=== PATIENT | male | born 1950 | race Caucasian/White ===

== ENCOUNTER 2016-11-08 12:08 | Day surgery (SDC) | payer MEDICARE, BC ==
--- NOTE | ~2016-11-08 | EGD ---
EGD REPORT [facility] [address] [place] [address] NAME: PAIGE BURK : [birth year] [place] : [place] [facility] [place] [id number] AGE: 66 ADM/REG DATE : MR#: [id number] REPORT SERV DATE: 11/08/16 DICTATED BY: DATE: REPORT STATUS : Draft TRANSCRIBED BY: [employer] DATE: 11/08/16 [facility] Patient Name: Paige Burk Date of : 1950 Attending MD: JENNY TORRES MD Procedure Date No Time: 11/08/2016 Procedure: Upper GI endoscopy Indications: Heartburn, Suspected esophageal reflux Referring MD: Jenny Pollack Medicines: as per anesthesia Complications: No immediate complications. Procedure: Pre-Anesthesia Assessment: - ASA Grade Assessment: III - A patient with severe systemic disease. After obtaining informed consent, the endoscope was passed under direct vision. Throughout the procedure, the patient's blood pressure, pulse, and oxygen saturations were monitored continuously. The GIF [id number] [id number] was introduced through the mouth, and advanced to the third part of duodenum. The upper GI endoscopy was accomplished without difficulty. The patient tolerated the procedure. Findings: There were esophageal mucosal changes suspicious for short-segment Alvarado's esophagus present in the lower third of the esophagus. The maximum longitudinal extent of these mucosal changes was 1 cm in length. Mucosa was biopsied with a cold forceps for histology randomly at intervals of 0.5 cm in the lower third of the esophagus. One specimen bottle was sent to pathology. Localized mild inflammation characterized by erythema was found in the gastric antrum. Biopsies were taken with a cold forceps for histology. The cardia and gastric fundus were normal on retroflexion. The examined duodenum was normal. 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 Biopsied. - Gastritis. Biopsied. - Normal examined duodenum. Recommendation: - Await pathology results. - Follow an antireflux regimen. - Continue present medications. Procedure Code(s): --- Professional --- EGD REPORT [address] [address] NAME: PAIGE BURK : [birth year] [place]US : [place] [facility] [place] PAT#: [id number] AGE: 66 ADM/REG DATE : MR#: [id number] REPORT SERV DATE: 11/08/16 DICTATED BY: DATE: REPORT STATUS : Draft TRANSCRIBED BY: [employer] DATE: 11/08/16 [id number], Esophagogastroduodenoscopy, flexible, transoral; with biopsy, single or multiple Diagnosis Code(s): --- Professional --- K22.9, Disease of esophagus, unspecified K29.70, Gastritis, unspecified, without bleeding R12, Heartburn CPT copyright 2013 [employer]. All rights reserved. The codes documented in this report are preliminary and upon state tested nursing assistant review may be revised to meet current compliance requirements. JENNY TORRES MD 11/08/2016 1:02 PM This report has been signed electronically. Number of Addenda: 0 Note Initiated On: 11/08/2016 12:41 PM Scope Withdrawal Time 0 hours 0 minutes [address] [place] [id number]
--- NOTE | ~2016-11-08 | EGD ---
EGD REPORT [facility] [address] [place] [address] NAME: PAIGE PALMER : [birth year] STATUS : PRE [facility] [place] PAT#: [id number] AGE: 66 ADM/REG DATE : MR#: [id number] REPORT SERV DATE: 11/08/16 DICTATED BY: JENNY TORRES DATE: 11/08/16 REPORT STATUS : Draft TRANSCRIBED BY: [employer] DATE: 11/08/16 [facility] Patient Name: Paige Palmer Date of : 1950 Attending MD: JENNY TORRES MD Procedure Date No Time: 11/08/2016 Procedure: Colonoscopy Indications: Screening for colorectal malignant neoplasm Referring MD: Jenny Pollack Medicines: as per anesthesia Complications: No immediate complications. Procedure: Pre-Anesthesia Assessment: - ASA Grade Assessment: III - A patient with severe systemic disease. After I obtained informed consent, the scope was passed under direct vision. Throughout the procedure, the patient's blood pressure, pulse, and oxygen saturations were monitored continuously. The PCF [id number] was introduced through the anus and advanced to the cecum, identified by appendiceal orifice and ileocecal valve. The colonoscopy was performed without difficulty. The patient tolerated the procedure. The quality of the bowel preparation was adequate to identify polyps. Findings: The perianal and digital rectal examinations were normal. The colon (entire examined portion) appeared normal. Impression: - The entire examined colon is normal. Recommendation: - Repeat colonoscopy in 10 years for surveillance. Procedure Code(s): --- Professional --- 67845, Colonoscopy, flexible, proximal to splenic flexure; diagnostic, with or without collection of specimen(s) by brushing or washing, with or without colon decompression (separate procedure) Diagnosis Code(s): --- Professional --- Z12.11, Encounter for screening for malignant neoplasm of colon CPT copyright 2013 [employer]. All rights reserved. EGD REPORT [facility] [address] [address] NAME: PAIGE PALMER : [birth year] STATUS : PRE [facility] [place] PAT#: [id number] AGE: 66 ADM/REG DATE : MR#: [id number] REPORT SERV DATE: 11/08/16 DICTATED BY: JENNY TORRES. DATE: 11/08/16 REPORT STATUS : Draft TRANSCRIBED BY: [employer] DATE: 11/08/16 The codes documented in this report are preliminary and upon soils technician review may be revised to meet current compliance requirements. JENNY TORRES MD 11/08/2016 1:19 PM This report has been signed electronically. Number of Addenda: 0 Note Initiated On: 11/08/2016 12:26 PM Scope Withdrawal Time 0 hours 6 minutes 29 seconds [address] [id number]
[~2016-11-08 12:08] MED LIST: ASAB PO; BETAPACE80 PO; BIST PO; CLARIT10 PO; CO Q-10100 MG PO; FISH OIL300 MG PO; FOLIC PO; LIPITOR40 PO; LYRICA25 PO; MOBIC15 MG PO; MTX2.5 PO; MULTIPLE VIT PO; NASACORTAQ NAS; NORCO1 TAB PO; PLAVIX PO; POTASSIUM GLUCO99 MG PO; PREDNISONE2.5 MG PO; PROTONIX PO; VALTREX5 PO; VITAMIN D31000 UNIT PO; VITE PO
== END 2016-11-08 23:59 | disposition home or self-care (01) ==
LOC: DMU 12:08
PROVIDERS: Internal Medicine Gastroenterology
PROC: 0DJD8ZZ Inspection of Lower Intestinal Tract, Via Natural or Artificial Opening Endoscopic (ICD-10-PCS; 2016-11-08)
PROC: 0DB38ZX Excision of Lower Esophagus, Via Natural or Artificial Opening Endoscopic, Diagnostic (ICD-10-PCS; principal; 2016-11-08 11:00)
PROC: 0DB68ZX Excision of Stomach, Via Natural or Artificial Opening Endoscopic, Diagnostic (ICD-10-PCS; 2016-11-08 11:00)
DX: Z12.11 Encounter for screening for malignant neoplasm of colon (principal); K29.50 Unspecified chronic gastritis without bleeding; K20.9 Esophagitis, unspecified; I48.0 Paroxysmal atrial fibrillation; M06.9 Rheumatoid arthritis, unspecified; J45.909 Unspecified asthma, uncomplicated; Z88.1 Allergy status to other antibiotic agents; Z88.8 Allergy status to other drugs, medicaments and biological substances; Z79.52 Long term (current) use of systemic steroids; Z79.1 Long term (current) use of non-steroidal anti-inflammatories (NSAID); Z79.82 Long term (current) use of aspirin; Z79.02 Long term (current) use of antithrombotics/antiplatelets; Z79.899 Other long term (current) drug therapy
CPT/HCPCS: 43239; G0121; 88305; 88342